=== PATIENT | female | born 1950 | race African-American/Black ===

== ENCOUNTER 2019-06-27 10:00 | Outpatient (CLI) | END 2019-06-27 10:24 | disposition short-term general hospital (02) | LOC: AMBL 10:00 | PROVIDERS: ATTEND Emergency Medicine | DX: R50.9 Fever, unspecified (principal); R09.02 Hypoxemia; R73.9 Hyperglycemia, unspecified; R41.0 Disorientation, unspecified; Z93.0 Tracheostomy status; Z99.81 Dependence on supplemental oxygen ==